=== PATIENT | female | born 1975 | race Caucasian/White ===

== ENCOUNTER 2018-06-15 09:23 | Emergency (ER) | payer MEDICAID ==
[~2018-06-15] VITALS: Ht 144.8 cm; Wt 68.2 kg
[2018-06-15 09:34] VITALS: Ht 144.8 cm; Wt 68.2 kg
[2018-06-15] MEDS ORDERED: ESTRACE2 MG PO (09:36)
[2018-06-15] MEDS ORDERED: BUPROPION HCL150 M1 PO (09:36)
[2018-06-15] MEDS ORDERED: BENTYL10 MG PO (09:37)
[2018-06-15 10:28] VITALS: BP 122/53
== END 2018-06-15 10:29 | disposition home or self-care (01) ==
LOC: D.ER 09:23
DX: R51 Headache (principal)

== ENCOUNTER 2018-06-22 13:06 | Emergency (ER) | payer MEDICAID ==
[~2018-06-22] VITALS: Ht 144.8 cm; Wt 69.1 kg
[~2018-06-22 13:06] MED LIST: BENTYL10 MG PO; BUPROPION HCL150 M1 PO; ESTRACE2 MG PO
[2018-06-22 13:13] VITALS: Ht 144.8 cm; Wt 69.1 kg
[2018-06-22] MEDS ORDERED: MECLIZINE HCL25 MG PO (14:02)
[2018-06-22] MEDS ORDERED: OMEPRAZOLE40 MG PO (14:03)
[2018-06-22 14:28] VITALS: BP 102/078
== END 2018-06-22 14:29 | disposition home or self-care (01) ==
LOC: D.ER 13:06
DX: R42 Dizziness and giddiness (principal)

== ENCOUNTER 2018-06-25 12:30 | Emergency (ER) | payer MEDICAID ==
[~2018-06-25] VITALS: Ht 144.8 cm; Wt 69.1 kg
[~2018-06-25 12:30] MED LIST changes: +MECLIZINE HCL25 MG PO; +OMEPRAZOLE40 MG PO
[2018-06-25 12:41] VITALS: BP 124/47; Ht 144.8 cm; Wt 69.1 kg
[2018-06-25 13:22] LABS: BASOPHILS 0 % (0-2); EOSINOPHILS 0.9 % (0-7); HEMATOCRIT 37.1 % (36.0-48.0); HEMOGLOBIN 12.4 g/dL (12-16); IMMATURE GRANULOCYTES 0.2 % (0-5); LYMPHOCYTES 36.9 % (15-50); MCH 31.6 pg (26.0-34.0); MCHC 33.4 g/dL (31.0-37.0); MCV 94.4 fL (80.0-100.0); MEAN PLATELET VOLUME 9.8 fL (7.4-10.4); MONOCYTES 5.3 % (2-11); NEUTROPHILS 56.7 % (40-80); PLATELET COUNT 209 10x3/uL (130-400); RBC 3.93 10x6/uL (4.00-5.40); RDW 12.6 % (11.5-14.5); WBC 4.3 10x3/uL (4.8-10.8)
[2018-06-25 13:43] LABS: ALBUMIN 3.7 g/dL (3.4-5.0); ALKALINE PHOSPHATASE 52 U/L (46-116); ALT (SGPT) 16 U/L (10-68); AMYLASE - SERUM 54 U/L (25-115); CALC OSMOLALITY 284 mosm/kg (275-300); CALCIUM 9.2 mg/dL (8.5-10.1); CARBON DIOXIDE 27.6 mmol/L (21.0-32.0); CHLORIDE - SERUM 106 mmol/L (98-107); CREATININE - SERUM 0.7 mg/dL (0.6-1.3); GLUCOSE 108 mg/dL (74-106); LIPASE 128 U/L (73-393); POTASSIUM - SERUM 3.3 mmol/L (3.5-5.1); PROTEIN - SERUM 7.3 g/dL (6.4-8.2); SODIUM 143 mmol/L (136-145); UREA NITROGEN 11 mg/dL (7-18); eGFR NON AFRICAN AMERICAN > 90 mL/min (90-120)
[2018-06-25 13:44] LABS: BILIRUBIN - TOTAL 0.06 mg/dL (0.2-1.3)
== END 2018-06-25 14:35 | disposition left against medical advice (07) ==
LOC: D.ER 12:30
PROVIDERS: Family Medicine
DX: R10.9 Unspecified abdominal pain (principal)